=== PATIENT | female | born 1975 | race African-American/Black ===

== ENCOUNTER 2018-03-08 18:28 | Emergency (ER) | payer SELFPAY ==
[~2018-03-08] VITALS: Ht 167.6 cm; Wt 68.2 kg
[2018-03-08 19:08] LABS: BASOPHILS % (AUTO) 1.2 % (0.0-2.0); EOSINOPHILS % (AUTO) 0.4 % (1.0-6.0); HEMATOCRIT 37.1 % (36-46); HEMOGLOBIN 12.3 g/dL (12.0-16.0); LYMPHOCYTES # (AUTO) 2.4 K/uL (1.0-4.8); LYMPHOCYTES % (AUTO) 41.3 % (22.0-44.0); MEAN CORPUSCULAR HEMOGLOBIN 30.5 pg (26.0-34.0); MEAN CORPUSCULAR HGB CONC 33.2 G/dL (31.0-37.0); MEAN CORPUSCULAR VOLUME 92 fL (80-100); MONOCYTES # (AUTO) 0.5 K/uL (0.1-1.0); MONOCYTES % (AUTO) 9.3 % (2.0-9.0); NEUTROPHILS # (AUTO) 2.8 K/uL (1.8-7.7); NEUTROPHILS % (AUTO) 47.8 % (40.0-70.0); PLATELET COUNT (AUTO) 262 K/uL (150-450); RED BLOOD CELL COUNT(AUTO) 4.04 MIL/uL (4.00-5.20)
[2018-03-08 19:17] LABS: ANION GAP 5 mmol/L (8-16); CALCIUM, TOTAL 8.1 mg/dL (8.8-10.5); CARBON DIOXIDE 30 mmol/L (22-29); CHLORIDE 103 mmol/L (98-107); CREATININE 0.92 mg/dL (0.60-1.30); GLOMERULAR FILTR. RATE CALC > 60 mL/min (>60); GLUCOSE,RANDOM 99 mg/dL (70-110); POTASSIUM 3.8 mmol/L (3.5-5.1); SODIUM SERUM 138 mmol/L (136-145); UREA NITROGEN, BLOOD 14 mg/dL (7-18)
[2018-03-08 19:23] LABS: ALANINE AMINOTRANSFERASE 53 U/L (12-78); ALBUMIN 3.7 g/dL (3.4-5.0); ALKALINE PHOSPHATASE 54 U/L (46-116); ASPARTATE AMINOTRANSFERASE 50 U/L (15-37); BILIRUBIN,TOTAL 0.2 mg/dL (0.1-1.0); TOTAL PROTEIN, SERUM 7.4 g/dL (6.4-8.2)
[2018-03-08 20:30] VITALS: BP 136/80
== END 2018-03-08 20:38 | disposition home or self-care (01) ==
LOC: EMS 18:30
DX: R07.89 Other chest pain (principal)
CPT/HCPCS: 93005

== ENCOUNTER 2024-02-05 15:22 | Emergency (ER) | payer SELFPAY ==
[~2024-02-05] VITALS: Ht 165.1 cm; Wt 67.3 kg
[2024-02-05 15:42] VITALS: BP 110/64; TEMP 98.7
[2024-02-05] MEDS: MethylPREDNISolone SOD SUCC 125 MG/2 ML VIAL IM ONE (15:55)
[2024-02-05] MEDS: GuaiFENesin/D-METHORPHAN [SUGAR-FREE] 200-20MG/10 ML SYRUP UDCUP PO ONE (15:55)
[2024-02-05] MEDS: ACETAMINOPHEN 500 MG TABLET PO ONE (15:56)
[2024-02-05] MEDS: IPRATROPIUM BROMIDE 0.5 MG/2.5 ML NEB SOLUTION NEB ONE (16:09)
[2024-02-05] MEDS: ALBUTEROL SULFATE 2.5 MG/0.5 ML NEB SOLUTION NEB ONE (16:09)
[2024-02-05 16:13] VITALS: PULSE 96; RESP 16; O2SAT 100
[2024-02-05 16:15] VITALS: PULSE 96; RESP 16; O2SAT 100
[2024-02-05 16:36] LABS: COVID AG,FIA SOURCE NASAL SWAB
[2024-02-05 16:55] LABS: SARS-COV2 (COVID) ANTIGEN,FIA Negative (Negative)
[2024-02-05 16:56] LABS: INFLUENZA TYPE A NEGATIVE FOR TYPE A (NEGATIVE); INFLUENZA TYPE B NEGATIVE FOR TYPE B (NEGATIVE)
[2024-02-05] MEDS ORDERED: ACET-66 PO (17:25)
[2024-02-05] MEDS ORDERED: ALBU18HF12 IH (17:25)
[2024-02-05] MEDS ORDERED: GUAIFDM PO (17:25)
[2024-02-05] MEDS ORDERED: PRED-554 PO (17:25)
== END 2024-02-05 18:02 | disposition home or self-care (01) ==
LOC: EMS 15:22
DX: J20.9 Acute bronchitis, unspecified (principal); J06.9 Acute upper respiratory infection, unspecified; Z93.0 Tracheostomy status; Z20.822 Contact with and (suspected) exposure to COVID-19
CPT/HCPCS: 99284; 71045; 87426; 87804; 94640; 96372; J2919; J7613